=== PATIENT | female | born 1990 | race African-American/Black ===

== ENCOUNTER 2017-11-06 15:29 | Inpatient (IN) | payer OTHER ==
[2017-11-06] MEDS ORDERED: OXYTOCIN 30 UNITS/LR 500 ML IV ×3 (16:00→22:00)
[2017-11-06] MEDS ORDERED: MISOPROSTOL 200 MCG TAB PR ×2 (16:00→22:00)
[2017-11-06] MEDS ORDERED: CEFAZOLIN 2 GM/50 ML (PMX) 50 ML IV (16:00)
[2017-11-06] MEDS ORDERED: METHYLERGONOVINE 0.2 MG INJ IM ×2 (16:00→22:00)
[2017-11-06] MEDS ORDERED: CARBOPROST 250 MCG INJ IM ×2 (16:00→22:00)
[2017-11-06] MEDS: LACTATED RINGER'S 1,000 ML IV ×2 (16:08→21:46)
[2017-11-06 16:35] LABS: ADD MAN DIFF? NO
[2017-11-06 16:40] LABS: WHITE BLOOD COUNT 9.2 10^3/ul (4.8-10.8)
[2017-11-06 16:40] LABS: BASOPHILS % 0.2 % (0.0-2.0); EOSINOPHILS # 0.1 10^3/ul (0.0-0.5); EOSINOPHILS % 0.8 % (0.0-7.0); HEMATOCRIT 40.3 % (37.0-47.0); LYMPHOCYTES # 2.1 10^3/ul (0.8-2.9); LYMPHOCYTES % 22.5 % (15.0-51.0); MEAN CORPUSCULAR HGB CONC 32.3 g/dl (32.0-37.0); MEAN CORPUSCULAR VOLUME 83.8 fl (82.0-101.0); MEAN PLATELET VOLUME 12.6 fl (7.4-10.4); MONOCYTE # 1.2 10^3/ul (0.3-0.9); MONOCYTES % 13.2 % (0.0-11.0); NEUTROPHIL # 5.8 10^3/ul (1.6-7.5); NEUTROPHILS % 62.9 % (39.0-77.0); PLATELET COUNT 131 10^3/UL (140-415); RED BLOOD COUNT 4.81 10^6/ul (4.20-5.40); RED CELL DISTRIBUTION WIDTH 14.4 % (11.5-14.5)
[2017-11-06 16:59] LABS: INR 1.09; PROTIME 14.2 Sec (11.9-14.9); PT RATIO 1.1
[2017-11-06 17:00] LABS: PARTIAL THROMBOPLASTIN TIME 29.9 Sec (25.0-35.0)
[2017-11-06] MEDS: ONDANSETRON 4 MG INJ IV (17:04)
[2017-11-06] MEDS: CITRIC ACID/SODIUM CITRATE 15 ML CUP PO (17:04)
[2017-11-06 17:30] LABS: HEPATITIS B SURFACE ANTIGEN NEGATIVE (NEGATIVE)
[2017-11-06] MEDS ORDERED: PHENYLephrine (100 MCG/ML) 5ML SYG ×2 (18:14→18:35)
[2017-11-06] MEDS ORDERED: morphine SULFATE/PF (10 MG/10 ML) INJ (18:14)
[2017-11-06] MEDS ORDERED: OXYTOCIN 10 UNIT INJ (18:14)
[2017-11-06] MEDS ORDERED: DEXAMETHASONE 4 MG/ML 1 ML INJ (18:39)
[2017-11-06] MEDS ORDERED: METOCLOPRAMIDE 10 MG INJ (18:39)
[2017-11-06] MEDS ORDERED: KETOROLAC 30 MG INJ (18:39)
[2017-11-06] MEDS ORDERED: ACETAMINOPHEN 500 MG TAB PO (19:00)
[2017-11-06] MEDS ORDERED: DIPHENHYDRAMINE 50 MG INJ IV (19:00)
[2017-11-06] MEDS ORDERED: morphine 2 MG INJ IV (19:00)
[2017-11-06] MEDS ORDERED: HYDROCODONE/APAP (5/325) TAB PO (19:00)
[2017-11-06] MEDS ORDERED: NALOXONE (0.4 MG/ML) INJ IV (19:00)
[2017-11-06] MEDS ORDERED: ONDANSETRON 4 MG INJ IV (19:00)
[2017-11-06] MEDS ORDERED: morphine 4 MG/ML VIAL IV (19:00)
[2017-11-06] MEDS ORDERED: HYDROmorphONE 0.5 MG/0.5 ML SYG IV ×2 (19:00)
[2017-11-06] MEDS ORDERED: NALBUPHINE HCL (10 MG/1 ML) INJ IV (19:00)
[2017-11-06] MEDS ORDERED: KETOROLAC 30 MG INJ IV (19:00)
[2017-11-06 22:36] LABS: RAPID PLASMA REAGIN NONREACTIVE (NR)
[2017-11-06] MEDS: OXYTOCIN 30 UNITS/LR 500 ML IV (23:03)
[2017-11-07] MEDS: SENNA/DOCUSATE NA (8.6MG/50MG) TAB PO ×2 (08:36→21:36)
[2017-11-07 08:39] LABS: ADD MAN DIFF? NO
[2017-11-07 08:49] LABS: WHITE BLOOD COUNT 14.8 10^3/ul (4.8-10.8)
[2017-11-07 08:49] LABS: BASOPHILS % 0.1 % (0.0-2.0); EOSINOPHILS % 0.1 % (0.0-7.0); HEMATOCRIT 38.7 % (37.0-47.0); HEMOGLOBIN 12.4 g/dl (12.0-16.0); LYMPHOCYTES # 2.3 10^3/ul (0.8-2.9); LYMPHOCYTES % 15.4 % (15.0-51.0); MEAN CORPUSCULAR HEMOGLOBIN 27.2 pg (29.0-33.0); MEAN CORPUSCULAR VOLUME 84.9 fl (82.0-101.0); MEAN PLATELET VOLUME 12.7 fl (7.4-10.4); MONOCYTE # 1.4 10^3/ul (0.3-0.9); MONOCYTES % 9.6 % (0.0-11.0); NEUTROPHILS % 74.5 % (39.0-77.0); PLATELET COUNT 123 10^3/UL (140-415); RED BLOOD COUNT 4.56 10^6/ul (4.20-5.40); RED CELL DISTRIBUTION WIDTH 14.2 % (11.5-14.5)
[2017-11-07] MEDS: LACTATED RINGER'S 1,000 ML IV ×3 (10:05→21:46)
[2017-11-07] MEDS: AZITHROMYCIN 250 MG TAB PO (16:51)
[2017-11-07] MEDS: GUAIFENESIN 20 MG/ML 5ML CUP PO ×2 (16:51→21:36)
[2017-11-07] MEDS ORDERED: OXYCODONE/ACETAMINOPHEN (5/325) TAB PO (18:00)
[2017-11-07] MEDS: IBUPROFEN 800 MG TAB PO (21:36)
[2017-11-08] MEDS: GUAIFENESIN 20 MG/ML 5ML CUP PO ×3 (05:06→21:50)
[2017-11-08] MEDS: OXYCODONE/ACETAMINOPHEN (5/325) TAB PO ×4 (05:06→19:00)
[2017-11-08] MEDS: LACTATED RINGER'S 1,000 ML IV (05:46)
[2017-11-08] MEDS: IBUPROFEN 800 MG TAB PO ×3 (06:00→21:49)
[2017-11-08] MEDS: SENNA/DOCUSATE NA (8.6MG/50MG) TAB PO ×2 (08:54→21:49)
[2017-11-08] MEDS: AZITHROMYCIN 250 MG TAB PO (08:54)
[2017-11-08] MEDS: LANOLIN 7 GM TUBE TOP (08:54)
[2017-11-08] MEDS: INFLUENZA VIRUS VACCINE 0.5 ML (DISPENSING) IM* (09:00)
[2017-11-09] MEDS: OXYCODONE/ACETAMINOPHEN (5/325) TAB PO ×3 (03:33→18:34)
[2017-11-09] MEDS: IBUPROFEN 800 MG TAB PO ×2 (06:11→13:18)
[2017-11-09] MEDS: GUAIFENESIN 20 MG/ML 5ML CUP PO ×2 (06:12→13:19)
[2017-11-09] MEDS: SENNA/DOCUSATE NA (8.6MG/50MG) TAB PO (08:31)
[2017-11-09] MEDS: AZITHROMYCIN 250 MG TAB PO (08:31)
[2017-11-09] MEDS: DIPHTH/TET/ACEL PERTUSS (ADULT) 0.5 ML VIAL IM* (12:00)
== END 2017-11-09 18:41 | disposition home or self-care (01) | DRG 766 ==
LOC: L-D 15:29 → PP1 22:30
PROVIDERS: Obstetrics & Gynecology
PROC: 10D00Z1 Extraction of Products of Conception, Low, Open Approach (ICD-10-PCS; principal; 2017-11-06 17:00)
DX: O34.211 Maternal care for low transverse scar from previous cesarean delivery (principal); Z37.0 Single live birth; Z3A.39 39 weeks gestation of pregnancy
CPT/HCPCS: 85025; 85610; 85730; 86592; 86850; 86900; 86901; 87340; 90686; 90715; 94760; 99464